=== PATIENT | male | born 1950 | race Caucasian/White ===

== ENCOUNTER 2017-10-21 11:40 | Emergency (ER) | END 2017-10-21 15:38 | disposition home or self-care (01) ==

== ENCOUNTER 2019-05-29 21:28 | Emergency (ER) | payer OTHER ==
[~2019-05-29] VITALS: Ht 172.7 cm; Wt 86.8 kg
[~2019-05-29 21:28] MED LIST: DIAZ5TAB PO; HYDR-3980 PO
[2019-05-29 21:34] VITALS: Ht 172.7 cm; Wt 86.8 kg
[2019-05-29] MEDS ORDERED: KETOROLAC 15 MG INJ IV STA (22:38)
[2019-05-30 00:40] VITALS: BP 148/71; PULSE 92; RESP 14
== END 2019-05-30 01:04 | disposition home or self-care (01) ==
LOC: E/R 21:28
DX: R10.11 Right upper quadrant pain (principal); R40.2142 Coma scale, eyes open, spontaneous, at arrival to emergency department; R40.2362 Coma scale, best motor response, obeys commands, at arrival to emergency department; R40.2252 Coma scale, best verbal response, oriented, at arrival to emergency department; E87.1 Hypo-osmolality and hyponatremia; I10 Essential (primary) hypertension; Z98.61 Coronary angioplasty status; Z87.891 Personal history of nicotine dependence
CPT/HCPCS: 36415; 74176; 80053; 81001; 83690; 85025; 96374; 99285; J1885